=== PATIENT | male | born 1970 | race Caucasian/White ===

== ENCOUNTER → 2024-12-31 | Outpatient (CLI) | payer BC, SELFPAY ==
--- NOTE | 2024-12-31 | XR_ITS ---
Examination: Shoulder, right, 3 views Technique: Shoulder AP internal rotation, AP external rotation, Y view shoulder, 3 views Exam date and time : December 31, 2024, 0732 hours INDICATIONS: Right shoulder pain and swelling beginning 4 months ago. FINDINGS: No shoulder fracture or dislocation Moderate narrowing glenohumeral joint No AC joint separation IMPRESSION: Moderate narrowing glenohumeral joint
--- NOTE | 2024-12-31 | XR_ITS ---
EXAMINATION: Cervical spine, 5 views Technique: Cervical spine AP, AP odontoid, lateral, bilateral obliques, 5 views Exam date and time: December 31, 2024, 0732 hours INDICATIONS: Neck pain radiating to the right shoulder beginning 4 months ago. FINDINGS: Adequate alignment cervical vertebral bodies. Moderate osteopenia. No cervical fracture. Mild to moderate disc narrowing C3-C4, C4-C5, C5-C6, C6-C7 with mild to moderate diffuse bilateral neuroforaminal stenosis IMPRESSION: Mild to moderate diffuse disc narrowing C3-C4, C4-C5, C5-C6, C6-C7 with bilateral neural foraminal stenosis as above
== END | disposition home or self-care (01) ==
PROVIDERS: PCP Nurse Practitioner Family; Referring Provider Nurse Practitioner Family; Visit Provider Nurse Practitioner Family
DX: M25.811 Other specified joint disorders, right shoulder (principal); M48.02 Spinal stenosis, cervical region
CPT/HCPCS: 72050; 73030